=== PATIENT | female | born 1945 | race Caucasian/White ===

== ENCOUNTER → 2016-05-05 | Outpatient (CLI) | payer OTHER | END | disposition home or self-care (01) | LOC: PCVCCLINIC 13:20 | PROVIDERS: ATTEND Internal Medicine Cardiovascular Disease | DX: I25.10 Atherosclerotic heart disease of native coronary artery without angina pectoris (principal); I10 Essential (primary) hypertension; E78.00 Pure hypercholesterolemia, unspecified; E11.9 Type 2 diabetes mellitus without complications; K21.9 Gastro-esophageal reflux disease without esophagitis | CPT/HCPCS: 93005; G0463 ==

== ENCOUNTER → 2017-01-19 | Outpatient (CLI) | payer OTHER ==
--- NOTE | 2017-01-19 09:59 | PCVCIMAG ---
APPROVED REPORT Study performed: 01/19/2017 08:57:01 EXAM: Comprehensive 2D, Doppler, and color-flow Echocardiogram Patient Location: Echo lab Status: routine BSA: 1.87 HR: 65 bpmBP: 122/84 mmHg Rhythm: NSR Other Information Study Quality: Adequate Risk Factors: Cardiac Risk Factors: HTN, DM Indications CAD 2D Dimensions LVEF(%): 60.62 (>50%) IVSd: 9.78 (7-11mm) LVDd: 39.00 mm PWd: 8.88 (7-11mm)Ascending Ao: 41.94 (22-36mm) LVDs: 26.57 (25-40mm) Left Atrium: 29.98 (27-40mm) Aortic Root: 40.30 mm LV Single Plane 4CH: 53.28 % LV Single Plane 2CH: 51.41 %Barbour's LVEF: 52.35 % Biplane EF: 51.4 % Volumes Left Atrial Volume (Systole) Single Plane 4CH: 87.00 mLSingle Plane 2CH: 56.10 mL LA ESV Index: 65.00 mL/m2 Aortic Valve AoV Peak Charbel.: 1.33 m/s AO Peak Gr.: 7.03 mmHgLVOT Max P.99 mmHg LVOT Max V: 1.00 m/s AI Vmax: 4.48 m/s AI [place]: 2.60 m/s2 AI PHT: 499.48 ms Mitral Valve E/A Ratio: 0.8 MV Decel. Time: 187.83 ms MV E Max Charbel.: 0.80 m/s MV A Charbel.: 0.97 m/s IVRT: 103.81 ms Pulmonary Valve PV Peak Charbel.: 0.73 m/sPV Peak Gr.: 2.11 mmHg Pulmonary Vein P Vein S: 0.36 m/sP Vein A: 0.28 m/s P Vein D: 0.44 m/sP Vein A Dur.: 121.1 msec P Vein S/D Ratio: 0.82 Tricuspid Valve TR Peak Charbel.: 2.68 m/s TR Peak Gr.: 28.76 mmHg Left Ventricle The left ventricle is normal size. There is normal LV segmental wall motion. There is normal left ventricular wall thickness. Left ventricular systolic function is normal. LVEF is 55%. Grade I - abnormal relaxation pattern. Right Ventricle The right ventricle is normal size. The right ventricular systolic function is normal. Atria Left atrium is mildly dilated. The right atrium size is normal. Aortic Valve The aortic valve is normal in structure. Mild aortic regurgitation. There is no aortic valvular stenosis. Mitral Valve The mitral valve is normal in structure. Mild mitral regurgitation. No evidence of mitral valve stenosis. Tricuspid Valve The tricuspid valve is normal in structure. Mild tricuspid regurgitation with PAP of 36 mmHg. Pulmonic Valve The pulmonary valve is normal in structure. Trace pulmonic regurgitation. Great Vessels The aortic root is mildly dilated in size to 4.0 cm. The ascending aorta is mildly dilated to 4.2 cm. IVC is normal in size and collapses with >50% inspiration Pericardium There is no pericardial effusion. <Conclusion> The left ventricle is normal size. The left ventricle is normal size. Left ventricular systolic function is normal. Grade I - abnormal relaxation pattern. The right ventricle is normal size. Left atrium is mildly dilated. Mild aortic regurgitation. Mild mitral regurgitation. Mild tricuspid regurgitation with PAP of 36 mmHg. The ascending aorta is mildly dilated to 4.2 cm.
== END | disposition home or self-care (01) ==
LOC: PCVCIMAG 08:48
PROVIDERS: ATTEND Internal Medicine Cardiovascular Disease
DX: I08.3 Combined rheumatic disorders of mitral, aortic and tricuspid valves (principal); I25.10 Atherosclerotic heart disease of native coronary artery without angina pectoris; I10 Essential (primary) hypertension; E78.00 Pure hypercholesterolemia, unspecified; K21.9 Gastro-esophageal reflux disease without esophagitis; E11.9 Type 2 diabetes mellitus without complications; Z79.82 Long term (current) use of aspirin; Z79.899 Other long term (current) drug therapy
CPT/HCPCS: 93005; 93306; G0463

== ENCOUNTER → 2018-02-14 | Outpatient (CLI) | payer OTHER | END | disposition home or self-care (01) | LOC: PCVCCLINIC 14:45 | PROVIDERS: ATTEND Internal Medicine Cardiovascular Disease | DX: I25.10 Atherosclerotic heart disease of native coronary artery without angina pectoris (principal); R94.31 Abnormal electrocardiogram [ECG] [EKG]; I10 Essential (primary) hypertension; E78.00 Pure hypercholesterolemia, unspecified; E11.9 Type 2 diabetes mellitus without complications; K21.9 Gastro-esophageal reflux disease without esophagitis; Z79.82 Long term (current) use of aspirin; Z79.899 Other long term (current) drug therapy; Z79.4 Long term (current) use of insulin; Z90.49 Acquired absence of other specified parts of digestive tract | CPT/HCPCS: 93005; G0463 ==

== ENCOUNTER → 2018-08-16 | Outpatient (CLI) | payer OTHER ==
[~2018-08-16] MED LIST: REGADENOSON 0.4 MG/5 ML DISP.SYRIN. IV ONE
--- NOTE | 2018-08-16 12:26 | PCVCIMAG ---
APPROVED REPORT Imaging Protocol: Rest Tc-99m/Stress Tc-99m 1 day Study performed: 08/16/2018 09:59:49 Indication: CAD Patient Location: Out-Patient Stress Tech: DAREN Piedra Stress Nurse: Kenia Moise RN, Lakisha Wong RN NM Tech:DAREN Piedra Ht: 5 ft 3 in Wt: 177 lbs BSA: 1.84 m2 HR: 71 bpm BP: 160/78 mmHg BMI: 31.35 Rhythm: Sinus Rhythm, 1st degree AV block Medical History Medical History: Hyperlipidemia, HTN, CAD, Diabetes Medications: ASA, Atorvastatin, Lexapro, Gabapentin, Neurontin, Insulin, Metoprolol, Protonix, Accupril Allergies: No known drug allergies Cardiac Risk Factors: Age Previous Cardiac Procedures: 2003 MD, Stent to RCA Pretest Chest Pain Characteristics: No chest pain Exercise History: Physically active Physical Disabilities: Knees Resting Data Rest SPECT myocardial perfusion imaging was performed in supine position 45 minutes following the intravenous injection of 11.3 mCi of Tc-99m Sestamibi. Time of rest injection: 929 Date: 08/16/2018 Administration Route: IV Administration Site: Right AC Pharmacologic Stress Pharmacologic stress test was performed by injecting Regadenoson 0.4 mg IV push over 10-15 seconds immediately followed by the intravenous injection of 33.6 mCi of Tc-99m Sestamibi. Time of stress injection: 1030 Date: 08/16/2018 Administration Route: IV Administration Site: Right AC Gated Stress SPECT was performed 45 minutes after stress injection. The images were gated to evaluate regional wall motion and calculate left ventricular ejection fraction. Stress Test Details Stress Test: Pharmacologic stress testing performed using 0.4 mg of regadenoson per 5 mL given IV over 10 seconds. Reason for pharmacologic stress test: Monique has knee issues. HRMax Heart Rate (APMHR): 148 bpm Resting HR: 71 bpmTarget HR (85% APMHR): 125 bpm Max HR Achieved: 90 bpm % of APMHR: 60 Recovery HR: 79 bpm BP Resting BP: 160/78 mmHg Max BP: 137/74 mmHg Recovery BP: 169/74 mmHg ECG Resting ECG: Sinus Rhythm, 1st degree AV block Stress ECG: Sinus Rhythm, 1st degree AV block ST Change: Non-ischemic Arrhythmia: None Recovery ECG: Sinus Rhythm, 1st degree AV block Clinical Reason for Termination: Completed protocol Stress Symptoms: Nausea Symptoms resolved with caffeine. Study Quality Study: Good Artifact: Mild Breast artifact Study Data Post stress, the left ventricular ejection was 74%.. SSS: 1 SRS: 2 SDS: 0 TID = 0.69. Perfusion There is a small area of mildly reduced uptake in the apical segment of the anterior wall which is seen on the stress images as well as the resting images. This area thickens and moves normally and is most consistent with attenuation artifact. Wall Motion Normal left ventricular wall motion. Nuclear Conclusion ECG Findings: negative for ischemia Clinical Findings: non-diagnostic Nuclear Findings: negative for ischemia Exercise Capacity: not assessed Left Ventricular Function: normal Risk Study: low This study is of low probability for inducible ischemia or prior infarct. Normal global and segmental LV systolic function. Artifact: Mild Breast artifact
== END | disposition home or self-care (01) ==
LOC: PCVCIMAG 09:08
PROVIDERS: ATTEND Internal Medicine Cardiovascular Disease
DX: I25.10 Atherosclerotic heart disease of native coronary artery without angina pectoris (principal); I10 Essential (primary) hypertension; E11.9 Type 2 diabetes mellitus without complications
CPT/HCPCS: 78452; 93017; A9500; J2785